=== PATIENT | female | born 2005 | race Caucasian/White ===

== ENCOUNTER 2023-11-14 10:29 | Emergency (ER) | payer SELFPAY ==
[2023-11-14 10:45] VITALS: BP 119/84; PULSE 71; RESP 18; TEMP 36.7; O2SAT 100
--- NOTE | 2023-11-14 11:30 | ED.SKABFB ---
HPI - Skin/Abscess/Foreign Bdy General Chief complaint: Skin/Abscess/Foreign Body Stated complaint: rash Time Seen by Provider: 11/14/23 10:49 Source: patient Mode of arrival: ambulatory Limitations: no limitations History of Present Illness HPI narrative: Hedy is a 18-year-old female patient presenting to the emergency room with complaints of a rash to her abdomen, back, thighs, chest, and arms. States the rash is mildly itchy. Has been going on for approximately 2 weeks. No fever or chills. Denies any URI symptoms Related Data Allergies Allergy/AdvReac Type Severity Reaction Status Date / Time No Known Allergies Allergy Unverified 07/25/17 17:44 Review of Systems Review of Systems: Pertinent positives per HPI. Patient denies any fever, chills, headache, visual changes, dizziness, cough, runny nose, sore throat, shortness of breath, chest pain, palpitations, nausea, vomiting, diarrhea, constipation, abdominal pain, or any urinary issues. PMFSH Comments At the time of my signature, I reviewed and agree with the nursing past medical, surgical, social, and family history. There is no relevant family history pertinent to the patient complaint. Exam Narrative: General: Well-developed, well nourished, in no apparent distress Head: Normocephalic, atraumatic. Cardio: Regular rate and rhythm, s1 and s2 normal, no murmur appreciated. Resp: Clear to auscultation bilaterally, no rhonchi, rales, wheezing or rubs. Integumentary: [place], warm, and dry, red raised circular lesions with central clearing and scaling with mild itching, nontender to palpation, blanchable Course Course Emergency Course: Portions of this record may have been created with voice recognition software. Vital Signs Vital signs: Vital Signs Temperature 36.7 C 11/14/23 10:45 Pulse Rate 71 11/14/23 10:45 Respiratory Rate 18 11/14/23 10:45 Blood Pressure 119/84 11/14/23 10:45 Pulse Oximetry 100 11/14/23 10:45 Oxygen Delivery Room Air 11/14/23 10:45 Temperature 36.7 C 11/14/23 10:45 Pulse Rate 71 11/14/23 10:45 Respiratory Rate 18 11/14/23 10:45 Blood Pressure 119/84 11/14/23 10:45 Pulse Oximetry 100 11/14/23 10:45 Oxygen Delivery Room Air 11/14/23 10:45 Vital signs reviewed MDM - Skin/Abscess/Foreign Bdy MDM Narrative Medical decision making narrative: At the time of visit patient is resting comfortably on the exam table. Patient appears to be nontoxic. Plan: I suspect patient has tinea corpus. Prescription for Diflucan clotrimazole cream was sent to the pharmacy as patient has lesions on her abdomen, arms, chest, and thighs. Supportive measures were discussed with the patient and they voiced understanding discharge instructions and agrees to treatment plan. Return precautions reviewed Differential Diagnosis Differential diagnosis: Likely dermatophytosis, urticaria, cellulitis, eczema, insect bites, impetigo, contact dermatitis and other (tinea corpis) Discharge Plan Discharge Clinical Impression: Tinea corporis Patient Disposition: Home, Self-Care Condition: Stable Instructions: Antibiotic Form, Tinea Corporis (ED) Additional Instructions: I suspect you have tinea corpus. Prescription for fluconazole was sent to the pharmacy as well as clotrimazole cream. Follow-up with your primary care doctor in 2-3 weeks if symptoms persist Prescriptions: New fluconazole 150 mg tablet 150 mg PO WEEKLY 21 Days Qty: 3 0RF clotrimazole 1 % cream 1 applic topical BID 21 Days Qty: 45 0RF Follow-up/Referrals: Shawn Gibson MD [Primary Care Provider] - Time of Disposition: 11:34 Quality NIHSS Nursing Documentation ED NIHSS nursing documentation: reviewed/agree
== END 2023-11-14 11:43 | disposition home or self-care (01) ==
PROVIDERS: Emergency Provider Nurse Practitioner Family; PCP Pediatrics
DX: B35.4 Tinea corporis (principal)
CPT/HCPCS: 99283